=== PATIENT | female | born 1960 | race Hispanic/Latino ===

== ENCOUNTER 2018-04-08 09:03 | Outpatient (CLI) | payer MEDICARE, MEDICAID ==
[2018-04-08 09:58] LABS: #Basophils 0.1 thou/uL (0.0-0.2); #Eosinphils 0.4 thou/uL (0.0-0.7); #Lymphocytes 3.3 thou/uL (1.20-3.40); #Monocytes 0.6 thou/uL (0.11-0.59); #Neutrophils 3.2 thou/uL (1.40-6.50); %Basophils 1.5 % (0.0-1.0); %Eosinophils 5.7 % (0.0-10.0); %Lymphocytes 43.4 % (21.0-51.0); %Monocytes 7.5 % (0.0-10.0); %Neutrophils 41.9 % (42.0-75.0); ALT (SGPT) 23 U/L (8-55); AST (SGOT) 26 U/L (5-34); Albumin 4.4 g/dL (3.5-5.0); Alkaline Phosphatase 106 U/L (40-150); Anion Gap 13 mmol/L (10-20); BUN (Urea Nitrogen) 13 mg/dL (9.8-20.1); Bilirubin, Total 0.8 mg/dL (0.2-1.2); Calc. Creatinine Clearance 0 mL/min (70-130); Calcium 9.3 mg/dL (7.8-10.44); Carbon Dioxide 27 mmol/L (22-29); Chloride 106 mmol/L (98-107); Estimated GFR-MDRD 54; Globulin 2.9 g/dL (2.4-3.5); Glucose 100 mg/dL (70-105); Hemoglobin 14.5 g/dL (12.0-16.0); Mean Corpuscular HGB CONC 32.5 g/dL (32.0-36.0); Mean Corpuscular Hemoglobin 29.9 pg (27.0-31.0); Mean Corpuscular Volume 92.1 fL (78.0-98.0); Mean Platelet Volume 9.9 fL (7.4-10.4); Platelet Count 230 thou/uL (130-400); Potassium 3.9 mmol/L (3.5-5.1); Protein, Total 7.3 g/dL (6.0-8.3); RBC Distribution Width 12.1 % (11.5-14.5); Red Blood Cell (RBC) Count 4.85 mill/uL (4.20-5.40); Sodium 142 mmol/L (136-145); White Blood Cell (WBC) Count 7.6 thou/uL (4.8-10.8)
== END 2018-04-08 09:04 | disposition home or self-care (01) ==
LOC: SCSEKG 09:03
DX: Z01.812 Encounter for preprocedural laboratory examination (principal)
CPT/HCPCS: 36415; 80053; 85025

== ENCOUNTER 2018-09-07 14:59 | Outpatient (CLI) | payer MEDICARE, MEDICAID ==
--- NOTE | 2018-09-07 16:41 | BD ---
DEXA BONE DENSITY: COMPARISON: No prior comparison. INDICATION: Postmenopausal bone mineral screening evaluation. Lumbar Spine: BMD (g/cm2) L1 0.82 T-Score: -1.5 L2 0.83 T-Score: -1.7 L3 0.84 T-Score: -2.2 L4 0.83 T-Score: -2.1 L1-L4 0.83 T-Score: -1.9 Femoral Neck: 0.76 T-Score: -0.7 Total Femur: 0.96 T-Score: 0.2 Impression: T-scores indicate osteopenia. This places the patient at increased risk for fracture. Major 10-year osteoporotic risk is calculated at 6.7%. POS: [facility]
--- NOTE | 2018-09-07 17:15 | RAD ---
KUB: Date: 09/07/18 INDICATION: Epigastric pain and swelling. COMPARISON: None. FINDINGS: Lung bases are clear. There is a moderate amount of retained stool within the colon. Suspected hernia mesh overlies the right mid abdomen. No acute osseous abnormality is evident. IMPRESSION: Moderate amount of retained stool within the colon. POS: [facility]
--- NOTE | 2018-09-07 17:15 | RAD ---
PA AND LATERAL OF THE CHEST: 09/07/18 INDICATION: History of general adult examination without abnormality. COMPARISON: None. FINDINGS: Lungs are clear. Heart size is normal. There is mild spondylosis of the thoracic spine. IMPRESSION: No acute abnormality. POS: [facility]
--- NOTE | 2018-09-13 13:22 | MMO ---
Bilateral MAMMO Bilat Screen [facility]. CLINICAL HISTORY: Patient is 58 years old and is seen for screening. The patient has no family history of breast cancer. The patient has no personal history of cancer. VIEWS: The views performed were: bilateral craniocaudal with tomosynthesis and bilateral mediolateral oblique with tomosynthesis. MAMMOGRAM FINDINGS: There are scattered fibroglandular densities. There are no suspicious masses, calcifications or areas of architectural distortion. IMPRESSION: THERE IS NO MAMMOGRAPHIC EVIDENCE OF MALIGNANCY. A ROUTINE FOLLOW-UP MAMMOGRAM IN 1 YEAR IS RECOMMENDED. THE RESULTS OF THIS EXAM WERE SENT TO THE PATIENT. ACR BI-RADS Category 1 - Negative MAMMOGRAPHY NOTE: 1. A negative mammogram report should not delay a biopsy if a dominant of clinically suspicious mass is present. 2. Approximately 10% to 15% of breast cancers are not detected by mammography. 3. Adenosis and dense breasts may obscure an underlying neoplasm.
== END 2018-09-07 15:00 | disposition home or self-care (01) ==
LOC: BICMAMMO 14:59
PROVIDERS: ATTEND Family Medicine
DX: Z12.31 Encounter for screening mammogram for malignant neoplasm of breast (principal); Z13.820 Encounter for screening for osteoporosis; R19.06 Epigastric swelling, mass or lump; R10.13 Epigastric pain; M85.88 Other specified disorders of bone density and structure, other site; K59.00 Constipation, unspecified
CPT/HCPCS: 71046; 74018; 77063; 77067; 77080

== ENCOUNTER 2018-09-22 09:37 | Outpatient (CLI) | payer MEDICARE, MEDICAID ==
--- NOTE | 2018-09-22 10:50 | CT ---
FContrast-enhanced CT images of abdomen. HISTORY: Epigastric pain. Contrast-enhanced images of the abdomen demonstrate the lung bases to be unremarkable. No evidence of free intraperitoneal air seen. The liver and spleen are unremarkable. The gallbladder and pancreas unremarkable. Adrenal glands unremarkable. The kidneys are within normal limits. No evidence of periaortic lymphadenopathy seen. No dilated loops of small bowel seen. The colon contains a normal amount of stool. No evidence of col onic distention seen. A normal appendix is visualized. IMPRESSION: Unremarkable CT of abdomen.
== END 2018-09-22 09:38 | disposition home or self-care (01) ==
LOC: BICCT 09:37
PROVIDERS: ATTEND Family Medicine
DX: R19.06 Epigastric swelling, mass or lump (principal)
CPT/HCPCS: 74160; 82565